=== PATIENT | male | born 2000 | race Two or more races ===

== ENCOUNTER 2022-02-12 19:11 | Emergency (ER) | payer BC, OTHER ==
[~2022-02-12] VITALS: Ht 172.7 cm; Wt 69.9 kg
[2022-02-12 19:14] VITALS: BP 121/79
[2022-02-12] MEDS ORDERED: ONDA-144 PO (22:31)
== END 2022-02-12 22:41 | disposition home or self-care (01) ==
LOC: ER 19:11
DX: S06.0X0A Concussion without loss of consciousness, initial encounter (principal); W22.8XXA Striking against or struck by other objects, initial encounter; Y93.89 Activity, other specified; Y92.89 Other specified places as the place of occurrence of the external cause; Y99.8 Other external cause status
CPT/HCPCS: 70450